=== PATIENT | male | born 1985 | race Caucasian/White ===

== ENCOUNTER 2018-07-04 13:46 | Emergency (ER) | payer OTHER ==
--- NOTE | 2018-07-04 14:15 | C.PDOC ---
History Of Present Illness 32 yr old male w/ hx of ketamine abuse, marijuana and cocaine use p/w abdominal pain, mild headache. He notes that abdominal pain started 4 days ago, throbbing and burning to his epigastric area, worse if he doesnt eat. He notes that he did not take any medications for the pain. He notes first time occurence of the pain. No fall or trauma. No urinary complaints or dark or bloody stool. No genital or groin pain. No fever, chills or night sweats. No rash. No neck stiffness. He notes mild nausea and one nbnb vomiting episodes yesterday. Pt also notes mild headache without any FND. No vision changes. He notes that when he does not take the ketamine he has these mild heaches. He deneis feeling off balance and notes that he misspoke earlier to the RN. He denies any weakness, unilateral weakness, face droop, or slurred speech. He denies any worst headache of life or sudden in onset GONZALEZ. He denies any SI / HI or depression. He notes he does not want any help with this ketamine usage or detox. He notes that he already sees a clinic for that. He notes last coke use was 7 days ago and denies any heroin use or IVDU. No other complaints. PMD: None. Time Seen by Provider: 07/04/18 13:58 Chief Complaint (Nursing): Abdominal Pain Past Medical History Vital Signs: Last Vital Signs Temp 99.4 F 07/04/18 13:51 Pulse 62 07/04/18 13:51 Resp 16 07/04/18 13:51 BP 147/101 H 07/04/18 13:51 Pulse Ox 98 07/04/18 13:51 Primary Care Provider: FAMILY PROVIDER,NO Family History: States: Unknown Family Hx - Social History Hx Alcohol Use: Yes Hx Substance Use: No - Immunization History Hx Tetanus Toxoid Vaccination: No Hx Influenza Vaccination: No Hx Pneumococcal Vaccination: No Review Of Systems Constitutional: Negative for: Fever, Chills, Weakness Eyes: Negative for: Pain, Vision Change ENT: Negative for: Ear Pain, Nose Pain, Mouth Pain, Mouth Swelling, Throat Pain Cardiovascular: Negative for: Chest Pain Respiratory: Negative for: Shortness of Breath Gastrointestinal: Positive for: Nausea, Abdominal Pain. Negative for: Vomiting, Diarrhea, Constipation, Melena, Hematochezia, Hematemesis Genitourinary: Negative for: Dysuria, Frequency Musculoskeletal: Negative for: Neck Pain, Shoulder Pain Skin: Negative for: Rash, Lesions Neurological: Negative for: Weakness, Numbness, Change in Speech, Altered Mental Status, Headache Psych: Negative for: Anxiety, Depression, Psychosis, Suicidal ideation Physical Exam - Physical Exam Appears: Well, Non-toxic, No Acute Distress Skin: Normal Color, Warm, Dry Head: Atraumatic, Normacephalic Eye(s): bilateral: Normal Inspection, PERRL, EOMI Nose: Normal, No Flaring, No Discharge Oral Mucosa: Moist Tongue: Normal Appearing Lips: Normal Appearing Teeth: Normal Dentition Gingiva: Normal Appearing Throat: Normal Neck: Normal, Normal ROM, No Midline Cervical Tenderness, No Paracervical Tenderness, Supple, Other (no meningeal signs) Chest: Symmetrical Cardiovascular: Rhythm Regular Respiratory: Normal Breath Sounds Gastrointestinal/Abdominal: Soft, Tenderness (epigastric), No Mass, No Distentio n, No Guarding, No Rebound, No Hernia Back: Normal Inspection, No CVA Tenderness, No Vertebral Tenderness Extremity: Normal ROM, No Tenderness, No Pedal Edema, No Deformity Neurological/Psych: Oriented x3, Normal Speech, Normal Cognition, Normal Cranial Nerves, No Cerebellar Signs, Normal Motor, Normal Sensation, No Dysarthria, No Romberg Gait: Steady Other Neurological Findings: No Facial Palsy ED Course And Treatment - Laboratory Results Result Diagrams: 07/04/18 14:30 07/04/18 14:30 O2 Sat by Pulse Oximetry: 98 Medical Decision Making Medical Decision Makin yr old male w/ hx of ketamine abuse p/w epigastric pain. Epigastric tenderness on exam w/ pt overall well apparing. No genital complaints or rashes. No signs of opiate / alcohol withdrawal on exam. No meningeal signs. Normal neuro exam. No depression / si or hi. No anxiety or hallucinations. Normal affect. Likely gastritis. pending labs 1728 labs largely unremarkable US unremarkable CT w/ mild enteritis vs hiatal hernia pt notes continued pain despite toradol, famotidine, and morphine paged hospitalist for intractable abd pain 1750 appreciate consult w/ Dr. Browne to obs to her service Disposition - Disposition Disposition: HOSPITALIZED Disposition Time: 17:34 Condition: STABLE - Clinical Impression Clinical Impression: Gastritis, Intractable abdominal pain
[2018-07-04] MEDS ORDERED: Sodium Chloride 0.9% 1,000 ML IV ONE (14:16)
[2018-07-04 14:34] LABS: BASO % 0.3 % (0.0-2.0); EOS # 0.1 K/uL (0.0-0.7); EOS % 0.5 % (0.0-4.0); HEMOGLOBIN 15.8 g/dL (12.0-18.0); LYMPH # 1.6 K/uL (1.0-4.3); LYMPH % 14.4 % (20.0-40.0); MEAN CELL VOLUME 91.9 fL (80.0-94.0); MEAN CORPUSCULAR HEMOGLOBIN 30.9 pg (27.0-31.0); MEAN CORPUSCULAR HGB CONC 33.6 g/dL (33.0-37.0); MEAN PLATELET VOLUME 9.1 fL (7.2-11.7); MONO # 0.9 K/uL (0.0-0.8); MONO % 7.9 % (0.0-10.0); NEUT # 8.6 K/uL (1.8-7.0); NEUT % 76.9 % (50.0-75.0); RBC 5.1 Mil/uL (4.40-5.90); RED CELL DISTRIBUTION WIDTH 13.1 % (11.5-14.5); WHITE BLOOD COUNT 11.2 K/uL (4.8-10.8)
[2018-07-04] MEDS ORDERED: Sodium Chloride 0.9% 1,000 ML ONE ×2 (14:41→19:41)
[2018-07-04 14:45] LABS: ALB/GLOB RATIO 1.4 (1.0-2.1); ALBUMIN 4.8 g/dL (3.5-5.0); ALT/SGPT 71 U/L (21-72); AST/SGOT 180 U/L (17-59); BLOOD UREA NITROGEN 10 mg/dL (9-20); GFR NON-AFRICAN AMERICAN > 60; LIPASE 30 U/L (23-300)
[2018-07-04 16:12] LABS: URINE BILIRUBIN NEGATIVE (NEGATIVE); URINE BLOOD NEGATIVE (NEGATIVE); URINE CLARITY Clear (Clear); URINE COLOR Yellow (YELLOW); URINE GLUCOSE (UA) NORMAL (Normal); URINE LEUKOCYTE ESTERASE NEG Leu/uL (Negative); URINE PROTEIN NEGATIVE (NEGATIVE); URINE UROBILINOGEN NORMAL mg/dL (0.2-1.0)
--- NOTE | 2018-07-04 16:39 | US ---
Date of service: 07/04/2018 HISTORY: epig pain COMPARISON: None available. TECHNIQUE: Sonographic evaluation of the right upper quadrant of the abdomen. FINDINGS: LIVER: Measures 18.8 cm in length and appears within normal limits of shape and echotexture. No focal hepatic mass identified. The main portal vein appears patent with normal directional flow. No intrahepatic bile duct dilatation. GALLBLADDER: No gallstones. No gallbladder wall thickening or pericholecystic edema. Negative sonographic Carroll's sign as assessed by the stagecraft professor. COMMON BILE DUCT: Measures 6 mm. PANCREAS: Not well-visualized. RIGHT KIDNEY: Measures approximately 10.4 x 4.6 x 4.5 cm. No obstructing calculus or hydronephrosis. AORTA: Limited visualization appears grossly unremarkable. IVC: Limited visualization appears grossly unremarkable. OTHER FINDINGS: None . IMPRESSION: Unremarkable study as above.
--- NOTE | 2018-07-04 17:05 | CT ---
PROCEDURE: CT Abdomen and Pelvis without Oral or IV contrast. HISTORY: epig pain COMPARISON: None available. TECHNIQUE: Contiguous axial images of the abdomen and pelvis. No oral or IV contrast administered. Coronal and Sagittal reformats generated and reviewed. Radiation dose: Total exam DLP = 885.09 mGy-cm. This CT exam was performed using one or more of the following dose reduction techniques: Automated exposure control, adjustment of the mA and/or kV according to patient size, and/or use of iterative reconstruction technique. FINDINGS: There is limited evaluation of the solid organs without the administration of IV contrast. LOWER THORAX: No visible consolidation, pleural effusion, or pneumothorax. Small hiatal hernia/distal esophageal wall thickening. LIVER: Unremarkable. GALLBLADDER AND BILE DUCTS: Unremarkable. PANCREAS: Unremarkable. SPLEEN: Unremarkable. ADRENALS: Unremarkable. KIDNEYS AND URETERS: No hydronephrosis or obstructing renal calculus. BLADDER: Mildly thick-walled urinary bladder. REPRODUCTIVE: Unremarkable. APPENDIX: The appendix appears within normal limits of caliber. No secondary signs of acute appendicitis. BOWEL: The stomach is nondistended. Lack of oral contrast limits evaluation for bowel pathology. The bowel loops appear within normal limits of caliber without evidence of intestinal obstruction. PERITONEUM: No significant free fluid. No definite free air. LYMPH NODES: Sub cm retroperitoneal adenopathy. VASCULATURE: No dense atherosclerotic calcifications of the aorta identified. No aortic aneurysm. BONES: No acute osseous abnormality is detected. OTHER FINDINGS: None. IMPRESSION: Small hiatal hernia/distal esophageal wall thickening. Sub cm retroperitoneal adenopathy, nonspecific.
[2018-07-04] MEDS ORDERED: Morphine 4 MG/ML VIAL ONE (17:21)
--- NOTE | 2018-07-04 18:22 | CP.PCM.HP ---
<Elmer Bingham - Last Filed: 07/04/18 19:09> History of Present Illness - History of Present Illness History of Present Illness: PGY-1 History and Physical for Dr. Kan Patient is a 32 year old male with no significant PMHx who presents complaining of abdominal pain lasting for about 4 days. Patient states the pain has gotten worse and unbearable so he felt the need to come to the ED. Patient does admit to recreational drug use which he has been participating in more frequently due to recently as self-medication for recent life stressors. He denies any recent travel, any changes in diet. He did have sushi yesterday but states was after he was having the pain already. Pain is sub-xiphoid 8/10 and non-radiating. He did have a couple episodes of nausea, which was mostly the color of his food or watery, non-bloody. Denies diarrhea, constipation, bloody stools. Of note patie nt does state he took ketamine and xanax this morning. PMHx: No significant Medications: None Surgical: Multiple orthopedic surgeries including repair of clavicular fracture, closed reduction L tibia fracture. Related to snowboarding and rugby accidents. Social hx: Formerly [employer] ex-pat, lives in [place] in apartment with several friends as roommates. Recreational use of Xanax, alcohol, cocaine, and ketamine. He most recently took xanax this morning and also took ketamine this morning. Family hx: Unsure PMD: Denies Present on Admission - Present on Admission Any Indicators Present on Admission: No Review of Systems - Constitutional Constitutional: absent: Chills, Fever - EENT Eyes: absent: Blurred Vision, Diplopia Ears: absent: Dizziness Nose/Mouth/Throat: absent: Nasal Congestion - Cardiovascular Cardiovascular: absent: Chest Pain, Dyspnea, Palpitations - Respiratory Respiratory: absent: Cough, Wheezing - Gastrointestinal Gastrointestinal: Abdominal Pain (epigastric, sub-xiphoid), Nausea, Vomiting. absent: Constipation, Diarrhea - Genitourinary Genitourinary: absent: Dysuria, Flank Pain - Neurological Neurological: absent: Dizziness, Numbness, Headaches, Tingling, Weakness - Psychiatric Additional comments: Reports recent increase in drug use due to personal issues, but did not go into details - Hematologic/Lymphatic Hematologic: absent: Easy Bleeding, Easy Bruising Past Patient History - Infectious Disease Hx of Infectious Diseases: None - Past Social History Smoking Status: Never Smoked - PSYCHIATRIC Hx Substance Use: No - SURGICAL HISTORY Hx Surgeries: Yes Hx Orthopedic Surgery: Yes - ANESTHESIA Hx Anesthesia: Yes Hx Anesthesia Reactions: No Meds Home Medications: Home Medication List Medication Instructions Recorded Confirmed Type Famotidine [Pepcid] 20 mg PO Q24H PRN 6 Days #6 tab 07/04/18 Rx Allergies/Adverse Reactions: Allergies Allergy/AdvReac Type Severity Reaction Status Date / Time No Known Allergies Allergy Verified 07/04/18 13:51 Physical Exam - Constitutional Appears: Non-toxic, No Acute Distress - Head Exam Head Exam: ATRAUMATIC, NORMOCEPHALIC - Eye Exam Eye Exam: EOMI, PERRL - ENT Exam ENT Exam: Mucous Membranes Moist - Respiratory Exam Respiratory Exam: Clear to Auscultation Bilateral, NORMAL BREATHING PATTERN. absent: Rhonchi, Wheezes - Cardiovascular Exam Cardiovascular Exam: REGULAR RHYTHM, +S1, +S2 - GI/Abdominal Exam GI & Abdominal Exam: Normal Bowel Sounds, Soft. absent: Tenderness - Extremities Exam Extremities exam: Positive for: normal inspection. Negative for: pedal edema, tenderness - Neurological Exam Neurological exam: Alert, CN II-XII Intact, Oriented x3 - Psychiatric Exam Psychiatric exam: Normal Affect, Normal Mood - Skin Skin Exam: Dry, Intact, Normal Color Results - Vital Signs Recent Vital Signs: Last Vital Signs Temp 98.0 F 07/04/18 15:55 Pulse 58 L 07/04/18 15:55 Resp 20 07/04/18 15:55 BP 155/85 H 07/04/18 15:55 Pulse Ox 98 07/04/18 17:50 - Labs Result Diagrams: 07/04/18 14:30 07/04/18 14:30 Labs: Laboratory Results - last 24 hr 07/04/18 07/04/18 07/04/18 14:30 14:30 16:05 WBC 11.2 H RBC 5.10 Hgb 15.8 Hct 46.9 MCV 91.9 MCH 30.9 MCHC 33.6 RDW 13.1 Plt Count 257 MPV 9.1 Neut % (Auto) 76.9 H Lymph % (Auto) 14.4 L Hanson % (Auto) 7.9 Eos % (Auto) 0.5 Baso % (Auto) 0.3 Neut # (Auto) 8.6 H Lymph # (Auto) 1.6 Hanson # (Auto) 0.9 H Eos # (Auto) 0.1 Baso # (Auto) 0.0 Sodium 139 Potassium 3.9 Chloride 97 L Carbon Dioxide 34 H Anion Gap 12 BUN 10 Creatinine 0.9 Est GFR ( Amer) > 60 Est GFR (Non-Af Amer) > 60 Random Glucose 117 H Calcium 10.0 Total Bilirubin 0.8 AST 180 H ALT 71 Alkaline Phosphatase 75 Total Protein 8.3 Albumin 4.8 Globulin 3.5 Albumin/Globulin Ratio 1.4 Lipase 30 Urine Color Yellow Urine Clarity Clear Urine pH 6.0 Ur Specific [place] 1.011 Urine Protein Negative Urine Glucose (UA) Normal Urine Ketones Trace Urine Blood Negative Urine Nitrate Negative Urine Bilirubin Negative Urine Urobilinogen Normal Ur Leukocyte Esterase Neg Urine WBC (Auto) 1 Urine RBC (Auto) 1 Assessment & Plan - Assessment and Plan (Free Text) Assessment: 32 year old male with no significant PMHx, with social history positive for ketamine, alcohol, xanax, and cocaine, presents with intractable abdominal pain and vomiting for several days. Plan Intractable abdominal pain and vomiting Imaging -CT abdomen/pelvis 07/04: Small hiatal hernia/distal esophageal wall thickening. Sub cm retroperitoneal adenopathy, nonspecific. -Gallbladder US: Unremarkable study -Imaging unremarkable as above -Lipase WNL Meds -NS @ 100 cc/hr -Toradol 15 mg PO Q6 prn -Zofran 4 mg PO Q6 prn -Pepcid 20 mg PO daily Polysubstance abuse -Patient does not wish for detox/psych -Monitor signs of withdrawal PPx -DVT: Heparin 12 U SC daily -GI: Pepcid 20 mg PO daily for abdominal pain Assessment and plan d/w Dr. Loreta Bingham, PGY-1 <Jody Kan - Last Filed: 07/05/18 15:16> Results - Vital Signs Recent Vital Signs: Last Vital Signs Temp 98.3 F 07/04/18 20:52 Pulse 77 07/04/18 20:52 Resp 16 07/04/18 20:52 BP 155/93 H 07/04/18 20:52 Pulse Ox 98 07/05/18 00:55 - Labs Result Diagrams: 07/04/18 14:30 07/04/18 14:30 Labs: Laboratory Results - last 24 hr 07/04/18 07/04/18 07/04/18 16:05 18:13 18:56 Total Creatine Kinase 7831 H Urine Color Yellow Urine Clarity Clear Urine pH 6.0 Ur Specific [place] 1.011 Urine Protein Negative Urine Glucose (UA) Normal Urine Ketones Trace Urine Blood Negative Urine Nitrate Negative Urine Bilirubin Negative Urine Urobilinogen Normal Ur Leukocyte Esterase Neg Urine WBC (Auto) 1 Urine RBC (Auto) 1 Urine Opiates Screen Negative Urine Methadone Screen Negative Ur Barbiturates Screen Negative Ur Phencyclidine Scrn Negative Ur Amphetamines Screen Negative U Benzodiazepines Scrn Negative U Oth Cocaine Metabols Negative U Cannabinoids Screen Positive H Attending/Attestation - Attestation I have personally seen and examined this patient.: Yes I have fully participated in the care of the patient.: Yes I have reviewed all pertinent clinical information: Yes Notes (Text): Observation for intractable vomiting,IV hydration,zofran. Avoid narcotics/drug use
[2018-07-04 18:35] LABS: BARBITURATES, UR NEGATIVE (NEGATIVE); BENZODIAZEPINES, UR NEGATIVE (NEGATIVE); OPIATES, UR NEGATIVE (NEGATIVE); PHENCYCLIDINE, UR NEGATIVE (NEGATIVE)
[2018-07-04] MEDS ORDERED: Sodium Chloride 0.9% 1,000 ML IV SCH (18:45)
--- NOTE | 2018-07-04 21:14 | CP.PCM.DIS ---
Provider - Provider Date of Admission: 07/04/18 17:49 Attending physician: Mary Browne DO Time Spent in preparation of Discharge (in minutes): 20 Diagnosis - Discharge Diagnosis (1) Left against medical advice Status: Acute Hospital Course - Lab Results Lab Results: Most Recent Lab Values WBC 11.2 K/uL (4.8-10.8) H 07/04/18 14:30 RBC 5.10 Mil/uL (4.40-5.90) 07/04/18 14:30 Hgb 15.8 g/dL (12.0-18.0) 07/04/18 14:30 Hct 46.9 % (35.0-51.0) 07/04/18 14:30 MCV 91.9 fL (80.0-94.0) 07/04/18 14:30 MCH 30.9 pg (27.0-31.0) 07/04/18 14:30 MCHC 33.6 g/dL (33.0-37.0) 07/04/18 14:30 RDW 13.1 % (11.5-14.5) 07/04/18 14:30 Plt Count 257 K/uL (130-400) 07/04/18 14:30 MPV 9.1 fL (7.2-11.7) 07/04/18 14:30 Neut % (Auto) 76.9 % (50.0-75.0) H 07/04/18 14:30 Lymph % (Auto) 14.4 % (20.0-40.0) L 07/04/18 14:30 [place] % (Auto) 7.9 % (0.0-10.0) 07/04/18 14:30 Eos % (Auto) 0.5 % (0.0-4.0) 07/04/18 14:30 Baso % (Auto) 0.3 % (0.0-2.0) 07/04/18 14:30 Neut # (Auto) 8.6 K/uL (1.8-7.0) H 07/04/18 14:30 Lymph # (Auto) 1.6 K/uL (1.0-4.3) 07/04/18 14:30 [place] # (Auto) 0.9 K/uL (0.0-0.8) H 07/04/18 14:30 Eos # (Auto) 0.1 K/uL (0.0-0.7) 07/04/18 14:30 Baso # (Auto) 0.0 K/uL (0.0-0.2) 07/04/18 14:30 Sodium 139 mmol/L (132-148) 07/04/18 14:30 Potassium 3.9 mmol/L (3.6-5.2) 07/04/18 14:30 Chloride 97 mmol/L (98-107) L 07/04/18 14:30 Carbon Dioxide 34 mmol/L (22-30) H 07/04/18 14:30 Anion Gap 12 (10-20) 07/04/18 14:30 BUN 10 mg/dL (9-20) 07/04/18 14:30 Creatinine 0.9 mg/dL (0.8-1.5) 07/04/18 14:30 Est GFR ( Amer) > 60 07/04/18 14:30 Est GFR (Non-Af Amer) > 60 07/04/18 14:30 Random Glucose 117 mg/dL (75-110) H 07/04/18 14:30 Calcium 10.0 mg/dl (8.6-10.4) 07/04/18 14:30 Total Bilirubin 0.8 mg/dL (0.2-1.3) 07/04/18 14:30 AST 180 U/L (17-59) H 07/04/18 14:30 ALT 71 U/L (21-72) 07/04/18 14:30 Alkaline Phosphatase 75 U/L (38-126) 07/04/18 14:30 Total Creatine Kinase 7831 U/L (55-170) H 07/04/18 18:56 Total Protein 8.3 g/dL (6.3-8.3) 07/04/18 14:30 Albumin 4.8 g/dL (3.5-5.0) 07/04/18 14:30 Globulin 3.5 gm/dL (2.2-3.9) 07/04/18 14:30 Albumin/Globulin Ratio 1.4 (1.0-2.1) 07/04/18 14:30 Lipase 30 U/L (23-300) 07/04/18 14:30 Urine Color Yellow (YELLOW) 07/04/18 16:05 Urine Clarity Clear (Clear) 07/04/18 16:05 Urine pH 6.0 (5.0-8.0) 07/04/18 16:05 Ur Specific [place] 1.011 (1.003-1.030) 07/04/18 16:05 Urine Protein Negative mg/dL (NEGATIVE) 07/04/18 16:05 Urine Glucose (UA) Normal mg/dL (Normal) 07/04/18 16:05 Urine Ketones Trace mg/dL (NEGATIVE) 07/04/18 16:05 Urine Blood Negative (NEGATIVE) 07/04/18 16:05 Urine Nitrate Negative (NEGATIVE) 07/04/18 16:05 Urine Bilirubin Negative (NEGATIVE) 07/04/18 16:05 Urine Urobilinogen Normal mg/dL (0.2-1.0) 07/04/18 16:05 Ur Leukocyte Esterase Neg Lori/uL (Negative) 07/04/18 16:05 Urine WBC (Auto) 1 /hpf (0-5) 07/04/18 16:05 Urine RBC (Auto) 1 /hpf (0-3) 07/04/18 16:05 Urine Opiates Screen Negative (NEGATIVE) 07/04/18 18:13 Urine Methadone Screen Negative (NEGATIVE) 07/04/18 18:13 Ur Barbiturates Screen Negative (NEGATIVE) 07/04/18 18:13 Ur Phencyclidine Scrn Negative (NEGATIVE) 07/04/18 18:13 Ur Amphetamines Screen Negative (NEGATIVE) 07/04/18 18:13 U Benzodiazepines Scrn Negative (NEGATIVE) 07/04/18 18:13 U Oth Cocaine Metabols Negative (NEGATIVE) 07/04/18 18:13 U Cannabinoids Screen Positive (NEGATIVE) H 07/04/18 18:13 - Hospital Course Hospital Course: Patient requested to leave AMA. Patient was explained the risks of leaving prior to further workup and treatment including persistence/worsening of symptoms, unstable vitals and . Patient understood the risks and chose to leave AMA regardless. Patient instructed to return the nearest ED immediately with any worsening of symptoms. HPI on admission: Patient is a 32 year old male with no significant PMHx who presents complaining of abdominal pain lasting for about 4 days. Patient states the pain has gotten worse and unbearable so he felt the need to come to the ED. Patient does admit to recreational drug use which he has been participating in more frequently due to recently as self-medication for recent life stressors. He denies any recent travel, any changes in diet. He did have sushi yesterday but states was after he was having the pain already. Pain is sub-xiphoid 8/10 and non-radiating. He did have a couple episodes of nausea, which was mostly the color of his food or watery, non-bloody. Denies diarrhea, constipation, bloody stools. Of note patient does state he took ketamine and xanax this morning. Discharge Exam - Head Exam Head Exam: ATRAUMATIC (refer to H & P), NORMOCEPHALIC Discharge Plan - Discharge Medications Prescriptions: Famotidine [Pepcid] 20 mg PO Q24H PRN 6 Days #6 tab PRN Reason: Dyspepsia - Follow Up Plan Condition: GOOD Disposition: AGAINST MEDICAL ADVICE Additional Instructions: Patient requested to leave AMA. Patient was explained the risks of leaving prior to further workup and treatment including persistence/worsening of symptoms, unstable vitals and . Patient understood the risks and chose to leave AMA regardless. Patient instructed to return the nearest ED immediately with any worsening of symptoms. [facility] [Outside] [facility] [Outside] [facility] [Outside] Froylan Quiroz MD [Staff Provider] - Shyanne Jackson MD [Staff Provider] -
[2018-07-04 21:25] VITALS: BP 155/93; PULSE 77; RESP 16; TEMP 98.3
[2018-07-05 00:55] VITALS: O2SAT 98
== END 2018-07-04 20:58 | disposition short-term general hospital (02) ==
LOC: C.ER 13:46 → UNDOADMOB 17:49 → C.9E 17:49 → C.3T 20:29 → UNDODISOB 20:39 → C.3T 21:24 → C.9E 21:24
DX: R10.9 Unspecified abdominal pain (principal); R11.10 Vomiting, unspecified; K44.9 Diaphragmatic hernia without obstruction or gangrene; R59.9 Enlarged lymph nodes, unspecified; F19.10 Other psychoactive substance abuse, uncomplicated
CPT/HCPCS: 74176; 76705; 80053; 80324; 80345; 80346; 80349; 80353; 80358; 80361; 81001; 82550; 83690; 83992; 85025; 96374; G0378; J1885; J2270; J2405; J7030